=== PATIENT | female | born 1995 | race Caucasian/White ===

== ENCOUNTER 2016-06-23 13:29 | Emergency (ER) | payer BC, OTHER ==
[2016-06-23] MEDS ORDERED: ONDANSETRON HCL 4 MG/2 ML VIAL ONE (13:51)
[2016-06-23 13:56] LABS: BASOPHIL# 0.1 X 10^3uL (0.0-0.1); BASOPHILS 0.7 % (0.0-2.0); EOSINOPHILS 1.5 % (0.0-6.0); EOSINOPHILS# 0.1 X 10^3uL (0.0-0.4); HEMATOCRIT 46.8 % (36.0-48.0); HEMOGLOBIN 15.5 g/dL (12.0-16.0); LYMPHOCYTES 23.6 % (20.0-40.0); LYMPHOCYTES# 1.8 X 10^3uL (0.8-3.8); MEAN CELL VOLUME 91.5 fL (80.0-100.0); MEAN CORPUS. HGB CONCENTRATION 33.1 g/dL (32.0-36.0); MEAN CORPUSCULAR HEMOGLOBIN 30.2 pg (29.0-35.0); MONOCYTES 5.2 % (2.0-10.0); MONOCYTES# 0.4 X 10^3uL (0.2-1.0); NEUTROPHILS# 5.2 X 10^3uL (2.6-6.7); PLATELET COUNT 275 X 10^3uL (130-440); RED BLOOD COUNT 5.11 X 10^6uL (4.20-6.10); RED CELL DISTRIBUTION WIDTH 11.8 % (11.5-14.5); WHITE BLOOD COUNT 7.6 X 10^3uL (3.9-10.7)
[2016-06-23 14:02] LABS: ALBUMIN 4.5 g/dL (3.5-5.0); ALKALINE PHOSPHATASE 63 U/L (38-126); ALT 39 U/L (9-52); AST 23 U/L (14-36); BILIRUBIN, DIRECT 0.3 mg/dL (0.0-0.4); BILIRUBIN, TOTAL 1.1 mg/dL (0.2-1.3); BLOOD UREA NITROGEN 14 mg/dL (7-17); CALCIUM 9.3 mg/dL (8.4-10.2); CHLORIDE 105 mmol/L (98-107); CREATININE 0.9 mg/dL (0.5-1.0); EST GLOMERULAR FILTRATION RATE > 60 mL/min; GLUCOSE 115 mg/dL (70-100); LIPASE 90 U/L (23-300); POTASSIUM 3.9 mmol/L (3.5-5.1); SODIUM 138 mmol/L (137-145); TOTAL PROTEIN 7.8 g/dL (6.3-8.2)
[2016-06-23] MEDS ORDERED: MORPHINE SULFATE 4 MG/ML SYR ONE (14:12)
[2016-06-23] MEDS ORDERED: KETOROLAC TROMETHAMINE 30 MG/ML VIAL ONE (14:12)
[2016-06-23] MEDS ORDERED: HYDROmorphone HCL 1 MG/ML SYR ONE (14:19)
--- NOTE | 2016-06-23 16:49 | CT REPORT ---
HISTORY: Acute right flank pain. COMPARISON: None TECHNIQUE: This examination was performed using automated exposure control, adjustment of mA or kV according to patient size, and/or use of iterative reconstruction technique. Axial CT images were obtained from th e lung bases through the pubic symphysis and reformatted in coronal and sagittal planes without the i ntravenous administration of contrast. FINDINGS: The lung bases are clear. There are no pleural effusions. There is a 3 mm calculus in the distal right ureter with resultant mild right hydronephrosis and mild right hydroureter. The visualized portions of the liver, spleen, adrenals, left kidney and pancreas are unremarkable for an unenhanced examination. The caliber of the bowel is normal. There is no bowel obstruction. The appendix is normal. There is no free intraperitoneal air. There are no osseous masses. IMPRESSION: A 3 mm obstructing calculus in the distal right ureter with mild right hydronephrosis. Final Electronic Signature: This report was electronically signed by Miguel Aldridge MD on 017 4:47 PM. kishore /
--- NOTE | 2016-06-23 17:41 | ER PHYSICIAN DOCUMENTATION ---
Physician Documentation [facility] Name:Haritha Becker Age:21 yrs Sex:Female :1995 Arrival Date:06/23/2016 Time:13:29 Bed3 Private MD: Chi Baker Disposition: 06/23/16 17:08 Discharged to Home/Self Care. Impression: Kidney Stone w/ Colic. - Condition is Good. - Discharge Instructions: KIDNEY STONE w/ Colic. - Prescriptions for Percocet 5- 325 mg Oral Tablet - take 1 tablet by ORAL route every 6 hours As needed; 20 tablet. Zofran 4 mg Oral Tablet - take 1 tablet by ORAL route every 12 hours; 6 tablet. Flomax 0.4 mg Oral - take 1 capsule by ORAL route once daily 1/2 hour following the same meal each day; 15 capsule. - Medical Reconciliation form form. - Follow up: Private Physician; When: As needed; Reason: Continuance of care. - Problem is new. - Symptoms have improved. HPI: 06/23 15:42 This 21 yrs old Female presents to ER via Private Vehicle with complaints of jm Abdominal Pain. 15:42 The patient complains of pain in the right mid back. The pain radiates RLQ. Onset: The jm symptom(s)/episode began/occurred today. Modifying factors: the symptoms are aggravated by nothing. Associated signs and symptoms: Pertinent negatives: fever, headache, hematuria, nausea. Severity of pain: in the emergency department the pain is a 10 / 10. The patient has not experienced similar symptoms in the past. The patient has not recently seen a physician. Historical: - Allergies: No known drug Allergies; - Home Meds: 1. None - PMHx: None; - PSHx: None; - Tetanus: < 10 years. - Ebola Screening: : Patient negative for fever greater than or equal to 101.5 degrees Fahrenheit, and additional compatible Ebola Virus Disease symptoms. Patient denies exposure to infectious person. Patient denies travel to an Ebola-affected area in the 21 days before illness onset. No symptoms or risks identified at this time. . - Immunization history: Flu Vaccine < 1 year. - Social history: Smoking status: Patient states was never smoker of tobacco. ROS: 15:43 Constitutional: Negative for fever, malaise. jm 15:43 ENT: Negative for sinus congestion, sinus pain, sore throat. 15:43 Cardiovascular: Negative for chest pain, paroxysmal nocturnal dyspnea. 15:43 Respiratory: Negative for cough, shortness of breath. 15:43 Abdomen/GI: Positive for abdominal pain. 15:43 Back: Positive for pain at rest. 15:43 : Positive for flank pain, Negative for injury or acute deformity. 15:43 Skin: Negative for rash, swelling. 15:43 Neuro: Negative for dizziness, weakness. 15:43 Endocrine: Negative for cold intolerance, heat intolerance. 15:43 All other systems are negative. Exam: 15:44 Constitutional: The patient appears alert, awake, comfortable. 15:44 Eyes: Periorbital structures: appear normal, Extraocular movements: intact throughout. 15:44 ENT: Mouth: is normal, Posterior pharynx: is normal. 15:44 Cardiovascular: Rate: normal, Rhythm: regular, Pulses: no pulse deficits are appreciated. 15:44 Respiratory: Respirations: normal, Breath sounds: are normal. 15:44 Abdomen/GI: Bowel sounds: normal, Palpation: abdomen is soft and non-tender. 15:44 Back: normal spinal alignment noted, CVA tenderness, is absent. 15:44 Back: CVA tenderness, that is moderate, is noted on the right. 15:44 : CVA tenderness, on the right, Bladder: is normal. 15:44 Skin: no rash present. Turgor: is excellent. 15:44 Neuro: Mentation: is normal, Memory: is normal. 15:44 Psych: Behavior/mood is pleasant, cooperative, Affect is calm. Vital Signs: 13:44 BP 145 / 71; Pulse 87; Resp 20; Temp 98.1; Pulse Ox 99% ; Weight 79.38 kg; Height 5 ft. jt 6 in. (167.64 cm); Pain 8/10; 14:31 Pulse 72; Pulse Ox 98% on 2 lpm NC; Pain 2/10; tg 17:02 BP 129 / 57; Pulse 74; Resp 14; Pulse Ox 94% on R/A; Pain 1/10; tg 13:44 Body Mass Index 28.25 (79.38 kg, 167.64 cm) jt MDM: 13:41 Patient medically screened. 15:00 Counseling: I had a detailed discussion with the patient and/or guardian regarding: the historical points, exam findings, and any diagnostic results supporting the discharge/admit diagnosis, lab results, radiology results, the need for outpatient follow up, with the patient's primary care provider, a urologist. Medication response: The patient's symptoms have improved, Dilaudid. ED course: Pt 3mm stone in UVJ w mild hydro. Pt better after meds. DC home. CT wait for read time = 1 hour. . 15:47 Differential diagnosis: nephrolithiasis, pyelonephritis. Data reviewed: vital signs, nurses notes, lab test result(s), radiologic studies, and as a result, I will. 06/23 14:01 Order name: CBC AUTO DIF, MDIF/RMOR IF IND; Complete Time: 14:19 EDMS 06/23 14:04 Order name: BASIC METABOLIC PANEL; Complete Time: 14:19 EDMS 06/23 14:04 Order name: HEPATIC PANEL; Complete Time: 14:19 EDMS 06/23 14:04 Order name: LIPASE; Complete Time: 14:19 EDMS 06/23 14:11 Order name: HCG, SERUM; Complete Time: 14:19 EDMS 06/23 16:50 Order name: CAT SCAN; A[place] [id number]; Complete Time: 17:07 EDMS 06/23 13:39 Order name: NPO; Complete Time: 13:49 tg 06/23 14:19 Order name: Oxygen; Complete Time: 14:20 tg 06/23 14:19 Order name: Pulse Ox Continuous; Complete Time: 14:20 tg 06/23 16:26 Order name: Urine Dip; Complete Time: 16:26 tg Dispensed Medications: 13:49 Drug: NS 0.9% 1000 ml; Route: IV; Rate: bolus; Site: left antecubital; Delivery: tg [place] Tubing; 14:58 Follow up: IV Status: Completed infusion; IV Intake: 1000ml tg 14:00 Drug: Zofran 4 mg; Route: IVP; Infused Over: 2 mins; Site: left antecubital; tg 14:31 Follow up: Response: No adverse reaction tg 14:19 CANCELLED (Patient Refused): morphine 4 mg IVP once tg 14:19 Drug: Dilaudid 1 mg; Route: IVP; Site: left antecubital; tg 14:31 Follow up: Pulse 72 bpm; Pulse Ox 98% 2 lpm Nasal Cannula; Pain 2/10 Adult; Response: tg Pain is decreased 14:58 Drug: NS 0.9% 1000 ml; Route: IV; Rate: bolus; Site: left antecubital; tg 17:37 CANCELLED (Patient Refused): Toradol 30 mg IVP once tg Point of Care Testing: Urine Dip: 15:29 pH: 8.5; ; Specific [place]: 1.02; Ketones: Negative; Glucose: Negative; Protein: jt Negative; Leukocytes: Negative; Nitrite: Negative ; Blood: Large (+++); Bilirubin: Negative ; Urobilinogen: Normal Signatures: Kirill Golden, CLAUS RN tg Chi Abdi MD MD
--- NOTE | 2016-06-23 17:41 | ER NURSING DOCUMENTATION ---
Nurse's Notes [facility] Name:Haritha Becker Age:21 yrs Sex:Female :1995 Arrival Date:06/23/2016 Time:13:29 Bed3 Private MD: Diagnosis:Kidney Stone w/ Colic Presentation: 06/23 13:38 Presenting complaint: Patient states: RLQ ABD pain, began with a headache. Transition tg of care: patient was not received from another setting of care. 13:38 Acuity: KATALINA 3 tg 13:38 Method Of Arrival: Private Vehicle tg Triage Assessment: 13:46 General: Appears uncomfortable, Behavior is cooperative. Pain: Complains of pain in tg right lower quadrant. Neuro: Level of Consciousness is awake, alert. Cardiovascular: Capillary refill < 3 seconds. Respiratory: Respiratory effort is even, unlabored. GI: Abdomen is obese, Bowel sounds present X 4 quads. Abd is soft X 4 quads Abdomen is tender to palpation in right lower quadrant. : Denies burning with urination. Derm: Skin is pink, warm & dry. 13:53 GI: Reports normal bowel habits, Denies constipation, diarrhea, nausea, vomiting. tg Historical: - Allergies: No known drug Allergies; - Home Meds: 1. None - PMHx: None; - PSHx: None; - Tetanus: < 10 years. - Ebola Screening: : Patient negative for fever greater than or equal to 101.5 degrees Fahrenheit, and additional compatible Ebola Virus Disease symptoms. Patient denies exposure to infectious person. Patient denies travel to an Ebola-affected area in the 21 days before illness onset. No symptoms or risks identified at this time. . - Immunization history: Flu Vaccine < 1 year. - Social history: Smoking status: Patient states was never smoker of tobacco. Screenin:48 Infectious Disease Risk Unable to Obtain. Abuse screen: Denies threats or abuse. Denies tg injuries from another. Nutritional screening: No deficits noted. Assessment: 13:48 See Triage Assessment done by same RN. tg 13:51 Reassessment: Pt's mother came out pt's room to report that pain is located more in the tg back than in the ABD. . 14:04 Reassessment: Pt's mom reports that she (pt's mom) does not tolerate morphine, and is tg concerned that pt will not tolerate it either and is requesting a different pain medicine. Dr. Abdi notified. . Vital Signs: 13:44 BP 145 / 71; Pulse 87; Resp 20; Temp 98.1; Pulse Ox 99% ; Weight 79.38 kg; Height 5 ft. jt 6 in. (167.64 cm); Pain 8/10; 14:31 Pulse 72; Pulse Ox 98% on 2 lpm NC; Pain 2/10; tg 17:02 BP 129 / 57; Pulse 74; Resp 14; Pulse Ox 94% on R/A; Pain 1/10; tg 13:44 Body Mass Index 28.25 (79.38 kg, 167.64 cm) jt ED Course: 13:31 Patient arrived in ED. jt 13:39 Triage completed. tg 13:41 Chi Abdi MD is Attending Physician. jm 13:44 Inserted peripheral IV: saline lock: 20 gauge in left antecubital area and blood jt collected. 13:46 Kirill Golden, RN is Primary Nurse. tg 13:48 Arm band placed on. tg 14:19 Oxygen Oxygen administration via nasal cannula @ 2L/min. tg 14:19 Valuables Remains with patient. Pulse ox on. tg 15:[address] pm1 16:[address] back [address]. pm1 Administered Medications: 13:49 Drug: NS 0.9% 1000 ml; Route: IV; Rate: bolus; Site: left antecubital; Delivery: tg [place] Tubing; 14:58 Follow up: IV Status: Completed infusion; IV Intake: 1000ml tg 14:00 Drug: Zofran 4 mg; Route: IVP; Infused Over: 2 mins; Site: left antecubital; tg 14:31 Follow up: Response: No adverse reaction tg 14:19 CANCELLED (Patient Refused): morphine 4 mg IVP once tg 14:19 Drug: Dilaudid 1 mg; Route: IVP; Site: left antecubital; tg 14:31 Follow up: Pulse 72 bpm; Pulse Ox 98% 2 lpm Nasal Cannula; Pain 2/10 Adult; Response: tg Pain is decreased 14:58 Drug: NS 0.9% 1000 ml; Route: IV; Rate: bolus; Site: left antecubital; tg 17:37 CANCELLED (Patient Refused): Toradol 30 mg IVP once tg Point of Care Testing: Urine Dip: 15:29 pH: 8.5; ; Specific [place]: 1.02; Ketones: Negative; Glucose: Negative; Protein: jt Negative; Leukocytes: Negative; Nitrite: Negative ; Blood: Large (+++); Bilirubin: Negative ; Urobilinogen: Normal Intake: 14:58 IV: 1000ml; Total: 1000ml. Outcome: 17:08 Discharge ordered by . manoj 17:39 Discharged to home ambulatory, with family. tg 17:39 Condition: stable 17:39 Discharge Assessment: Patient awake, alert and oriented x 3. No cognitive and/or functional deficits noted. Patient verbalized understanding of disposition instructions. 17:39 Discharge Assessment: Pt concerned about reaction to percocet since her mom has a bad reaction. Pt advised to begin by taking a half dose, and to call the ED with any issues 17:39 Instructed on discharge instructions, follow up and referral plans. medication usage, Prescriptions given X 3. 17:39 IV D/Lucio 17:40 Patient left the ED. tg 06/25 10:44 Discharge F/U Call: Spoke with: parent of minor. Name: Nat Becker Are you having cb any pain? yes. Pain level is 4 / 10 How are you managing your pain? Patient is taking medication: Percocet not working due to nausea Have you filled your prescriptions? yes. Did your discharge instructions answer all of your questions? yes Have you made a f/u appointment? No. Reason for no f/u appt: "thinking it would pass" Further F/U necessary? Signatures: Kirill Golden RN RN tg Ballinghoff, Cindy, RN RN cb Meyer, John, MD MD jm McBride, Philisha pm1 Jennifer Gomes
== END 2016-06-23 17:41 | disposition home or self-care (01) ==
LOC: ER 13:29
DX: N20.0 Calculus of kidney (principal); N23 Unspecified renal colic
CPT/HCPCS: 74176; 80048; 80076; 83690; 84703; 85025; 96361; 96374; 96375; 99285; J1170; J1885; J2270; J2405